=== PATIENT | male | born 1970 | race American Indian/Alaskan Native ===

== ENCOUNTER 2018-12-26 13:25 | Emergency (ER) | payer OTHER, MEDICARE ==
[2018-12-26] MEDS ORDERED: hydrALAZINE 20 MG/1 ML INJ IV ONE ×4 (14:21→22:00)
--- NOTE | 2018-12-26 14:22 | Emergency Department Report ---
ED General Adult HPI - General Chief complaint: High BP Stated complaint: HTN Time Seen by Provider: 12/26/18 14:21 Source: patient, EMS Mode of arrival: Stretcher Limitations: Other - History of Present Illness Initial comments: Pt is a 48-year-old -[place] male who comes to us today from [facility]. 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 It's noted on his paperwork sent by [facility] that he is on Cipro protocol. Patient states he has been drinking and it makes him angry. Patient is constricted and not sharing a lot of information. Patient is on a 1014 at [facility] and has a sitter here in the emergency room with him. At the time of exam patient denies any chest pain shortness of breath headache or other complaint. He states the pancreas that him because of his blood pressure. Patient states he used to take blood pressure medicine but he has not some time. In reviewing the monitor from [facility] he is on no antihypertensives there. PMH HTN gerd DMII etoh use MD RX at [place] voltarin depakote pepcid glyburide thiamine trazadone zoloft risperadol MVI metformin See paper chart. -: Gradual, days(s) Associated Symptoms: denies other symptoms - Related Data Previous Rx's Medication Instructions Recorded Last Taken Type Carvedilol [Coreg] 12.5 mg PO BID #60 tablet 12/26/18 Unknown Rx Losartan Potassium 100 mg PO QDAY #30 tablet 12/26/18 Unknown Rx amLODIPine 10 mg PO DAILY #30 tab 12/26/18 Unknown Rx Allergies Allergy/AdvReac Type Severity Reaction Status Date / Time No Known Allergies Allergy Verified 12/26/18 16:58 ED Review of Systems ROS: Stated complaint: HTN Other details as noted in HPI Comment: All other systems reviewed and negative ED Past Medical Hx - Past Medical History Previous Medical History?: Yes Hx Hypertension: Yes Hx Psychiatric Treatment: Yes Additional medical history: OBESE. ETOH USE. DM. MD - Surgical History Past Surgical History?: No - Family History Family history: no significant - Social History Smoking Status: Former Smoker Substance Use Type: Alcohol - Medications Home Medications: Home Medications Medication Instructions Recorded Confirmed Last Taken Type Carvedilol [Coreg] 12.5 mg PO BID #60 tablet 12/26/18 Unknown Rx Losartan Potassium 100 mg PO QDAY #30 tablet 12/26/18 Unknown Rx amLODIPine 10 mg PO DAILY #30 tab 12/26/18 Unknown Rx ED Physical Exam - General Limitations: Other General appearance: alert, in no apparent distress - Head Head exam: Present: atraumatic, normocephalic - Eye Eye exam: Present: normal appearance - ENT ENT exam: Present: mucous membranes moist - Neck Neck exam: Present: normal inspection - Respiratory Respiratory exam: Present: normal lung sounds bilaterally. Absent: respiratory distress - Cardiovascular Cardiovascular Exam: Present: regular rate, normal rhythm. Absent: systolic murmur, diastolic murmur, rubs, gallop - GI/Abdominal GI/Abdominal exam: Present: soft, normal bowel sounds - Rectal Rectal exam: Present: deferred - Extremities Exam Extremities exam: Present: normal inspection - Back Exam Back exam: Present: normal inspection - Neurological Exam Neurological exam: Present: alert, oriented X3 - Psychiatric Psychiatric exam: Present: normal affect, normal mood - Skin Skin exam: Present: warm, dry, intact, normal color. Absent: rash ED Course Vital Signs 12/26/18 12/26/18 12/26/18 14:30 14:46 16:21 Temperature 98 F Pulse Rate 91 H 70 Respiratory 20 Rate Blood Pressure 198/110 Blood Pressure 219/116 [Right] O2 Sat by Pulse 98 99 Oximetry 12/26/18 12/26/18 12/26/18 16:30 16:31 16:45 Temperature Pulse Rate 82 103 H 105 H Respiratory 18 16 Rate Blood Pressure 228/116 224/109 240/111 Blood Pressure [Right] O2 Sat by Pulse 99 98 Oximetry 12/26/18 12/26/18 12/26/18 17:00 17:35 17:37 Temperature Pulse Rate 109 H 108 H Respiratory 16 12 Rate Blood Pressure 244/122 244/122 Blood Pressure 213/109 [Right] O2 Sat by Pulse 98 98 97 Oximetry 12/26/18 12/26/18 12/26/18 17:45 18:00 18:15 Temperature Pulse Rate 111 H 89 102 H Respiratory 22 16 15 Rate Blood Pressure 196/105 213/111 194/104 Blood Pressure [Right] O2 Sat by Pulse 97 97 96 Oximetry 12/26/18 12/26/18 12/26/18 18:37 18:59 19:00 Temperature Pulse Rate 112 H Respiratory 17 Rate Blood Pressure 195/103 195/103 206/98 Blood Pressure [Right] O2 Sat by Pulse 97 92 Oximetry 12/26/18 12/26/18 12/26/18 19:08 19:15 19:30 Temperature 98.5 F Pulse Rate 113 H 119 H 126 H Respiratory 22 15 Rate Blood Pressure 206/98 222/110 Blood Pressure 222/110 [Right] O2 Sat by Pulse 96 96 Oximetry 12/26/18 12/26/18 12/26/18 19:31 20:15 21:20 Temperature Pulse Rate 117 H 110 H 120 H Respiratory 20 22 Rate Blood Pressure 197/106 196/110 Blood Pressure 196/94 [Right] O2 Sat by Pulse 96 96 Oximetry 12/26/18 12/26/18 21:45 22:50 Temperature Pulse Rate 106 H 106 H Respiratory 16 Rate Blood Pressure 178/106 Blood Pressure 176/93 [Right] O2 Sat by Pulse 96 Oximetry ED Medical Decision Making - Lab Data Result diagrams: 12/26/18 14:46 12/26/18 14:46 - EKG Data EKG shows normal: sinus rhythm Rate: normal - EKG Data When compared to previous EKG there are: no significant change Interpretation: no acute changes - Radiology Data Radiology results: report reviewed, image reviewed - Medical Decision Making Lab Results 12/26/18 12/26/18 Range/Units 14:46 14:46 WBC 5.1 (4.5-11.0) K/mm3 RBC 4.83 (3.65-5.03) M/mm3 Hgb 13.4 (11.8-15.2) gm/dl Hct 40.9 (35.5-45.6) % MCV 85 (84-94) fl MCH 28 (28-32) pg MCHC 33 (32-34) % RDW 14.2 (13.2-15.2) % Plt Count 189 (140-440) K/mm3 Sodium 137 (137-145) mmol/L Potassium 3.9 (3.6-5.0) mmol/L Chloride 98.9 (98-107) mmol/L Carbon Dioxide 25 (22-30) mmol/L Anion Gap 17 mmol/L BUN 15 (9-20) mg/dL Creatinine 1.1 (0.8-1.5) mg/dL Estimated GFR > 60 ml/min BUN/Creatinine Ratio 14 % Glucose 199 H (75-100) mg/dL Calcium 10.1 (8.4-10.2) mg/dL Total Bilirubin 0.30 (0.1-1.2) mg/dL AST 54 H (5-40) units/L ALT 76 H (7-56) units/L Alkaline Phosphatase 99 (35-129) units/L Troponin T < 0.010 (0.00-0.029) ng/mL Total Protein 8.0 (6.3-8.2) g/dL Albumin 4.0 (3.9-5) g/dL Albumin/Globulin Ratio 1.0 % Vital Signs 12/26/18 14:46 Pulse Rate 70 Blood Pressure 198/110 labs noted since in ER pt has gotten hydral 20 mg IV x 2 ativan 1mg PO and his blood pressure has not changed. Vital Signs 12/26/18 12/26/18 12/26/18 14:30 14:46 16:21 Temperature 98 F Pulse Rate 91 H 70 Respiratory 20 Rate Blood Pressure 198/110 Blood Pressure 219/116 [Right] O2 Sat by Pulse 98 99 Oximetry 12/26/18 12/26/18 12/26/18 16:30 16:31 16:45 Temperature Pulse Rate 82 103 H 105 H Respiratory 18 16 Rate Blood Pressure 228/116 224/109 240/111 Blood Pressure [Right] O2 Sat by Pulse 99 98 Oximetry 12/26/18 12/26/18 17:00 17:37 Temperature Pulse Rate 109 H 108 H Respiratory 16 12 Rate Blood Pressure 244/122 Blood Pressure 213/109 [Right] O2 Sat by Pulse 98 97 Oximetry Labs noted and no end organ failure 1830 pt without complaints Staffed with Dr Sanchez [address] Romero - he will see and eval the pt. He requests a 3rd dose of hydral. IV now. Sign out to Dr Sanchez - Differential Diagnosis htn urgency/emergency Critical care attestation.: If time is entered above; I have spent that time in minutes in the direct care of this critically ill patient, excluding procedure time. ED Disposition Clinical Impression: Hypertensive urgency Disposition: DC-01 TO HOME OR SELFCARE Is pt being admited?: No Does the pt Need Aspirin: No Condition: Stable Instructions: Chronic Hypertension (ED) Prescriptions: amLODIPine 10 mg PO DAILY #30 tab Carvedilol [Coreg] 12.5 mg PO BID #60 tablet Losartan Potassium 100 mg PO QDAY #30 tablet Referrals: [facility] [Outside] - 3-5 Days Time of Disposition: 16:19
--- NOTE | 2018-12-26 14:55 | XRay Report ---
CHEST 1 VIEW INDICATION: Hypertension. COMPARISON: None FINDINGS: Support devices: None. Heart: Within normal limits. Lungs/Pleura: No acute air space or interstitial disease. Additional findings: None. IMPRESSION: No acute findings. Signer Name: Daniel Wheeler Jr, MD Signed: 12/26/2018 2:51 PM Workstation Name: [id number]
[2018-12-26 15:13] LABS: Hematocrit 40.9 % (35.5-45.6); Hemoglobin 13.4 gm/dl (11.8-15.2); Mean Corpuscular HGB Conc 33 % (32-34); Mean Corpuscular Volume 85 fl (84-94); Platelet Count 189 K/mm3 (140-440); Red Blood Count 4.83 M/mm3 (3.65-5.03); Red Cell Distribution Width 14.2 % (13.2-15.2)
[2018-12-26 15:39] LABS: Alanine Aminotransferase 76 units/L (7-56); BUN/Creatinine Ratio 14; Blood Urea Nitrogen 15 mg/dL (9-20); Calcium 10.1 mg/dL (8.4-10.2); Hemolysis Index 49
[2018-12-26] MEDS ORDERED: ALUM-MAG HYDROXIDE-SIMETHICONE 200-200-20MG/5ML ORAL LIQD 30 ML PO ONE (16:24)
[2018-12-26] MEDS ORDERED: PANTOPRAZOLE 40 MG TAB PO ONE (16:24)
[2018-12-26] MEDS ORDERED: LORazepam 1 MG TAB PO ONE (16:24)
[2018-12-26] MEDS ORDERED: niCARdipine 50 MG in SODIUM CHLORIDE 0.9% 250ML 230 ML IV SCH (19:00)
--- NOTE | 2018-12-26 20:51 | Event Note ---
Date: 12/26/18 Patient comes in for uncontrolled HTN. Not on any antihuypertensives Patients BP now reasonable Discharged on losartan 100 mg po qd Coreg 12.5 bid and Amlodipine 10 mg po qd. Advised to take BP meds regularly.
[2018-12-26] MEDS ORDERED: LOSARTAN 50 MG TAB PO SCH (21:00)
[2018-12-26] MEDS ORDERED: cloNIDine 0.2 MG TAB PO ONE (21:15)
[2018-12-26 23:00] VITALS: BP 176/93
== END 2018-12-26 22:50 | disposition home or self-care (01) ==
LOC: ED 13:25
DX: I16.0 Hypertensive urgency (principal); I10 Essential (primary) hypertension; K21.9 Gastro-esophageal reflux disease without esophagitis; E11.9 Type 2 diabetes mellitus without complications; Z79.899 Other long term (current) drug therapy; Z79.84 Long term (current) use of oral hypoglycemic drugs; Z87.891 Personal history of nicotine dependence
CPT/HCPCS: 36415; 71045; 80053; 84484; 85027; 93005; 93010; 96374; 96376; 99284; J0360; J7050